=== PATIENT | male | born 1995 | race Hispanic/Latino ===

== ENCOUNTER 2017-07-01 15:43 | Emergency (ER) | payer BC ==
[2017-07-01 16:00] VITALS: TEMP 98.7; O2SAT 99
[2017-07-01 16:03] VITALS: RESP 18
--- NOTE | 2017-07-01 17:15 | ED PDOC ---
Arrival/HPI - General Chief Complaint: Bite Time Seen by Provider: 07/01/17 16:48 Historian: Patient - History of Present Illness Narrative History of Present Illness (Text): 07/01/17 17:37 21-year-old male presents today with a tick bite to the right forearm. Patient states he was in the [employer] on vacation and he believes that he may have had a tick on his arm for greater than 24 hours. Patient states that today he noticed a large tick with surrounding erythema on the volar aspect of the right forearm. Patient states he removed the tick and presents today for evaluation. He denies fevers or chills. Denies dizziness or weakness. Denies chest pain or shortness of breath. No other complaints Time/Duration: Other (this morning) Past Medical History - Provider Review Nursing Documentation Reviewed: Yes - Travel History Have you recently traveled outside [place] w/in the past 3 mons?: No - Infectious Disease Hx of Infectious Diseases: None - Psychiatric Hx Substance Use: Yes - Surgical History Other/Comment: right inguinal hernia removed - Anesthesia Hx Anesthesia: Yes Hx Anesthesia Reactions: No Hx Malignant Hyperthermia: No Family/Social History - Physician Review Nursing Documentation Reviewed: Yes Family/Social History: Unknown Family HX Smoking Status: Heavy Smoker > 10 Cigarettes Daily Hx Alcohol Use: No Hx Substance Use: Yes Substance used: marijuana Allergies/Home Meds Allergies/Adverse Reactions: Allergies No Known Allergies Allergy (Verified 07/01/17 16:00) Review of Systems - Review of Systems Constitutional: absent: Fatigue, Fevers Respiratory: absent: SOB, Cough Cardiovascular: absent: Chest Pain, Palpitations Gastrointestinal: absent: Abdominal Pain, Nausea, Vomiting Musculoskeletal: absent: Arthralgias Skin: Rash, Other (tick bite) Neurological: absent: Headache, Dizziness Psychiatric: absent: Anxiety, Depression Physical Exam Vital Signs Reviewed: Yes Vital Signs Temp Pulse Resp BP Pulse Ox 07/01/17 17:33 79 18 108/65 99 07/01/17 16:02 98.7 F 87 18 106/67 99 07/01/17 15:55 98.7 F 87 20 106/67 99 - Systems Exam Head: Present: Atraumatic Mouth: Present: Moist Mucous Membranes Neck: Present: Normal Range of Motion Respiratory/Chest: Present: Clear to Auscultation, Good Air Exchange. No: Respiratory Distress, Accessory Muscle Use Cardiovascular: Present: Regular Rate and Rhythm, Normal S1, S2. No: Murmurs Upper Extremity: Present: Erythema (there is a small round area of erythema approx 1cm round. with central opening located along the volar medial aspect of the right forearm; non tender; no tick. ). No: Tenderness, Swelling Neurological: Present: GCS=15 Skin: Present: Warm, Dry Psychiatric: Present: Alert, Oriented x 3 Medical Decision Making ED Course and Treatment: 07/01/17 17:40 21yr old male with tick bite to right forearm will send lyme titer. will treat with doxycyline for 14 days. pt was advised to f/u with PMD and have repeat lyme testing 6weeks. advised immediate return if symptoms worsen,persist or if new symptoms develop. Patient verbalizes understanding of discharge instructions and need for immediate followup. all aspects of this case were discussed the attending of record. Impression: Tick bite Doxycycline twice daily 14 days Follow-up with primary care physician within the next 2 days You will need repeat testing for Lyme disease approximately after 6 weeks. return immediately if symptoms worsen,persist or if new symptoms develop. - Medication Orders Current Medication Orders: Discontinued Medications Doxycycline Hyclate (Doryx) 100 mg PO STAT STA PRN Reason: Protocol Stop: 07/01/17 16:54 Last Admin: 07/01/17 17:05 Dose: 100 mg Disposition/Present on Arrival - Present on Arrival Any Indicators Present on Arrival: No History of DVT/PE: No History of Uncontrolled Diabetes: No Urinary Catheter: No History of Decub. Ulcer: No History Surgical Site Infection Following: None - Disposition Have Diagnosis and Disposition been Completed?: Yes Diagnosis: Tick bite Disposition: HOME/ ROUTINE Disposition Time: 17:11 Patient Plan: Discharge Condition: GOOD Discharge Instructions (ExitCare): Lyme Disease Test Additional Instructions: Doxycycline twice daily 14 days Follow-up with primary care physician within the next 2 days You will need repeat testing for Lyme disease approximately after 6 weeks. return immediately if symptoms worsen,persist or if new symptoms develop. Prescriptions: Doxycycline Hyclate 100 mg PO BID #28 capsule Referrals: PCP,NO [Primary Care Provider] - Follow up with primary Shanda Morgan MD [Staff Provider] - Follow up with primary Aftab Page MD [Staff Provider] - Follow up with primary Forms: Melon #[email or web address] (Turkish), WORK NOTE
[2017-07-01 17:33] VITALS: BP 108/65; PULSE 79
== END 2017-07-01 17:40 | disposition home or self-care (01) ==
LOC: ED 15:43
DX: S50.861A Insect bite (nonvenomous) of right forearm, initial encounter (principal); W57.XXXA Bitten or stung by nonvenomous insect and other nonvenomous arthropods, initial encounter; F17.210 Nicotine dependence, cigarettes, uncomplicated